=== PATIENT | male | born 1990 | race Caucasian/White ===

== ENCOUNTER → 2023-05-03 | Outpatient (CLI) | payer SELFPAY ==
--- NOTE | 2023-05-03 15:05 | US ---
EXAMINATION TYPE: US scrotum with doppler. Grayscale and color Doppler Duplex imaging performed of t melissa scrotum. DATE OF EXAM: 05/03/2023 COMPARISON: NONE CLINICAL INDICATION: Male, 33 years old with history of N50.89 OTHER SPECIFIED DISORDERS OF THE MALE ORGANS; small (less than a pea) sized palpable at the inferior aspect of the right testicle EXAM MEASUREMENTS: TESTICLES: Right Testicle: 4.5 x 2.4 x 36 cm Left Testicle: 5.0 x 3.2 x 2.5 cm EPIDIDYMIS HEAD: Right Epididymis: wnl Left Epididymis: wnl Doppler performed to assess for testicular vascularity; good bilateral color flow and waveforms are s een. There is no evidence of testicular torsion. Presence of hydroceles: no Presence of varicoceles: no Scanned over the pt's area of concern, no abnormality noted by ultrasound. IMPRESSION: 1. No evidence for testicular torsion or mass. 2. No ultrasound evidence for abnormality in the patient's region of concern.
== END | disposition home or self-care (01) ==
LOC: RADUSWWP 14:17
PROVIDERS: ATTEND Family Medicine
DX: N50.89 Other specified disorders of the male genital organs (principal)
CPT/HCPCS: 76870; 93975

== ENCOUNTER 2024-08-14 13:49 | Emergency (ER) | payer OTHER ==
[2024-08-14 13:55] VITALS: TEMP 98.2
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
[2024-08-14] MEDS: ONDANSETRON 4 MG ODT STARTER PACK 2 TAB BTL PO STA (15:00)
[2024-08-14 15:11] VITALS: BP 145/98; PULSE 91; RESP 20
== END 2024-08-14 15:11 | disposition home or self-care (01) ==
LOC: EC 13:49
DX: S06.0XAA Concussion with loss of consciousness status unknown, initial encounter (principal); W22.03XA Walked into furniture, initial encounter; Y99.0 Civilian activity done for income or pay
CPT/HCPCS: 70450; 99283